=== PATIENT | female | born 1965 | race African-American/Black ===

== ENCOUNTER 2017-09-27 14:21 | Emergency (ER) | payer BC ==
[2017-09-27 14:47] VITALS: BP 170/99; PULSE 63; RESP 18; TEMP 98.3
--- NOTE | 2017-09-27 15:25 | ED ---
General Adult HPI - General Chief complaint: Dental/Oral Stated complaint: Dental Pain Source: patient Mode of arrival: ambulatory Limitations: no limitations - History of Present Illness Initial comments: Dictation was produced using [employer] dictation software. please excuse any grammatical, word or spelling errors. Chief Complaint: 51-year-old [place] female past medical history of hypertension presents with lymphadenopathy of the left cervical chain. History of Present Illness: Patient was seen at the local urgent care for lymphadenopathy of the left cervical chain. Patient states that she's had lymphadenopathy in the past after a dental procedure approximately 1 year ago. Patient has poor dentition with pending dental workup. Patient completed a ten- day course of doxycycline. Patient not complaining of any pain. She does state that she has to have further work on left maxillary teeth. Denies any constitutional symptoms. She was seen at urgent care where the urgent care doctor told her to come to the emergency department for blood work and CT soft tissue of the neck. Patient not having any shortness of breath, stridulous breathing, uncontrollable drooling. The ROS documented in this emergency department record has been reviewed and confirmed by me. Those systems with pertinent positive or negative responses have been documented in the HPI. All other systems are other negative and/or noncontributory. - Related Data Home Medications Medication Instructions Recorded Confirmed Biotin 5 mg PO DAILY 09/27/17 09/27/17 Nebivolol HCl [Bystolic] 20 mg PO DAILY 09/27/17 09/27/17 amLODIPine BESYLATE/BENAZEPRIL 1 cap PO HS 09/27/17 09/27/17 [Lotrel 10-20 mg Capsule] cloNIDine HCL [Catapres] 0.1 mg PO DAILY PRN 09/27/17 09/27/17 Previous Rx's Medication Instructions Recorded Clindamycin [Cleocin] 450 mg PO Q8H 7 Days #21 capsule 09/27/17 Allergies Allergy/AdvReac Type Severity Reaction Status Date / Time Sulfa (Sulfonamide Allergy Anaphylaxis Verified 09/27/17 15:18 Antibiotics) terbinafine [From Lamisil] Allergy Rash/Hives Verified 09/27/17 15:18 Review of Systems ROS Statement: Those systems with pertinent positive or pertinent negative responses have been documented in the HPI. ROS Other: All systems not noted in ROS Statement are negative. Past Medical History Past Medical History: Hypertension History of Any Multi-Drug Resistant Organisms: None Reported Past Surgical History: Ablation, Section, Hysterectomy, Orthopedic Surgery Additional Past Surgical History / Comment(s): partial hysterectomy and uterine ablasion Past Psychological History: No Psychological Hx Reported Smoking Status: Light tobacco smoker Past Alcohol Use History: Occasional Past Drug Use History: None Reported General Exam - General Exam Comments Initial Comments: PHYSICAL EXAM: General Impression: Alert and oriented x3, not in acute distress HEENT: Normocephalic atraumatic, extra-ocular movements intact, pupils equal and reactive to light bilaterally, mucous membranes moist, poor dentition, cracked tooth of the maxillary molars. No gingival abscesses. Small 1 x 1 cm lymphadenopathy of the left superior cervical chain. Mildly tender, no erythema Cardiovascular: Heart regular rate and rhythm, S1&S2 audible, no murmurs, rubs or gallops Chest: Lungs clear to auscultation bilaterally, no rhonchi, no wheeze, no rales Abdomen: Bowel sounds present, abdomen soft, non-tender, non-distended, no organomegaly Musculoskeletal: Pulses present and equal in all extremities, no peripheral edema Motor: Power 5/5 bilaterally, no focal deficits noted Neurological: CN II-XII grossly intact, no focal motor or sensory deficits noted Skin: Intact with no visualized rashes Psych: Normal affect and mood Limitations: no limitations Course Vital Signs 09/27/17 14:44 Temperature 98.3 F Pulse Rate 63 Respiratory 18 Rate Blood Pressure 170/99 O2 Sat by Pulse 98 Oximetry Medical Decision Making - Medical Decision Making ED course: 51-year-old -[place] female with past medical history of hypertension presents with lymphadenopathy of unknown etiology. Vital signs upon arrival are within acceptable limits. Patient was told by urgent care physician to come to the emergency department for blood work and CT imaging. No indication for blood work at this time given that patient has stable vital signs, she is afebrile and not complaining of a signs of severe infection. No indication for CT imaging at this time given that patient reports improvement symptoms since yesterday. Furthermore, patient not showing any signs of any airway compromise. Lymphadenopathy is very mild. Given that patient has poor dentition lymphadenopathies likely secondary to dental infection. Patient offered CT imaging and blood work she did not feel it was necessary. Patient states that she will contact her primary care physician tomorrow and she is also urged to move up her dental appointment with her dentist to take care of possible dental infection. Patient given by mouth antibiotics in the meantime until further notice by primary care physician or dentist. Disposition Clinical Impression: Dental caries Disposition: HOME SELF-CARE Instructions: Dental Caries (ED) Prescriptions: Clindamycin [Cleocin] 450 mg PO Q8H 7 Days #21 capsule Is patient prescribed a controlled substance at d/c from ED?: No Referrals: None,Stated [Primary Care Provider] - 1-2 days Time of Disposition: 15:28
== END 2017-09-27 15:44 | disposition home or self-care (01) ==
LOC: EC 14:21
DX: K02.9 Dental caries, unspecified (principal); K03.81 Cracked tooth; R59.0 Localized enlarged lymph nodes; I10 Essential (primary) hypertension; F17.200 Nicotine dependence, unspecified, uncomplicated; Z79.899 Other long term (current) drug therapy; Z88.1 Allergy status to other antibiotic agents; Z88.2 Allergy status to sulfonamides
CPT/HCPCS: 99282

== ENCOUNTER 2017-09-27 18:50 | Emergency (ER) | payer BC ==
[2017-09-27 18:57] VITALS: BP 149/90; PULSE 80; RESP 18; TEMP 98.6
--- NOTE | 2017-09-27 19:38 | ED ---
Allergic Reaction HPI - General Chief complaint: Allergic Reaction Stated complaint: Poss Allergic Reaction Time Seen by Provider: 09/27/17 19:22 Source: patient Mode of arrival: ambulatory Limitations: no limitations - History of Present Illness Initial Comments: This a 51-year-old female with past medical history who presents today for chief complaint of ALLERGIC reaction times an hour. Patient states that she was seen here the emergency department earlier for left-sided dental pain, or she was prescribed penicillin. She did not fill or take any of this medication yet. However she was at home eating shrimp which began to feel her lips and tongue swell. Patient felt as though she was having an ALLERGIC reaction to the shrimp. Patient immediately presents to emergency department. Upon arrival patient stated that her lips and tongue swelling had reduced. Vital signs stable. Patient denies any difficulty swallowing, difficulty breathing, shortness of breath, dizziness, syncope, chest pain. Patient denies any recent fever, chills, back pain, abdominal pain, nausea or vomiting, numbness or tingling, dysuria or hematuria, constipation or diarrhea, headaches or visual changes, or any other complaints. - Related Data Home Medications Medication Instructions Recorded Confirmed Biotin 5 mg PO DAILY 09/27/17 09/27/17 Nebivolol HCl [Bystolic] 20 mg PO DAILY 09/27/17 09/27/17 amLODIPine BESYLATE/BENAZEPRIL 1 cap PO DAILY 09/27/17 09/27/17 [Lotrel 10-20 mg Capsule] cloNIDine HCL [Catapres] 0.1 mg PO DAILY PRN 09/27/17 09/27/17 Previous Rx's Medication Instructions Recorded Clindamycin [Cleocin] 450 mg PO Q8H 7 Days #21 capsule 09/27/17 diphenhydrAMINE [Benadryl] 50 mg PO HS PRN 5 Days #5 capsule 09/27/17 predniSONE 20 mg PO DAILY 4 Days #4 tab 09/27/17 Allergies Allergy/AdvReac Type Severity Reaction Status Date / Time Sulfa (Sulfonamide Allergy Anaphylaxis Verified 09/27/17 19:12 Antibiotics) terbinafine [From Lamisil] Allergy Rash/Hives Verified 09/27/17 19:12 Review of Systems ROS Statement: Those systems with pertinent positive or pertinent negative responses have been documented in the HPI. ROS Other: All systems not noted in ROS Statement are negative. Constitutional: Denies: fever, chills Respiratory: Denies: dyspnea, wheezes, hemoptysis, stridor Cardiovascular: Denies: chest pain Endocrine: Denies: fatigue Gastrointestinal: Denies: abdominal pain, nausea, vomiting, diarrhea Genitourinary: Denies: urgency, dysuria, frequency Skin: Reports: as per HPI Past Medical History Past Medical History: Hypertension History of Any Multi-Drug Resistant Organisms: None Reported Past Surgical History: Ablation, Section, Hysterectomy, Orthopedic Surgery Additional Past Surgical History / Comment(s): partial hysterectomy and uterine ablasion Past Psychological History: No Psychological Hx Reported Smoking Status: Light tobacco smoker Past Alcohol Use History: Occasional Past Drug Use History: None Reported General Exam - General Exam Comments Initial Comments: General: The patient is awake and alert, in no distress, and does not appear acutely ill. Eye: Pupils are equal, round and reactive to light, extra-ocular movements are intact. No nystagmus. There is normal conjunctiva bilaterally. No signs of icterus. Ears, nose, mouth and throat: There are moist mucous membranes and no oral lesions. There is no swelling of the lips, buccal mucosa, tongue, oropharynx. Patient has no difficulty swallowing. Neck: The neck is supple, there is no tenderness or JVD. There is left-sided facial swelling, patient states that this hasn't changed since she presented earlier for dental pain. Cardiovascular: There is a regular rate and rhythm. No murmur, rub or gallop is appreciated. Respiratory: Lungs are clear to auscultation, respirations are non-labored, breath sounds are equal. No wheezes, stridor, rales, or rhonchi. Musculoskeletal: Normal ROM, no tenderness. Strength 5/5. Sensation intact. Pulses equal bilaterally 2+. Neurological: A&O x 3. CN II-XII intact, There are no obvious motor or sensory deficits. Coordination appears grossly intact. Speech is normal. Skin: Skin is warm and dry and no rashes or lesions are noted. Psychiatric: Cooperative, appropriate mood & affect, normal judgment. Limitations: no limitations Course Vital Signs 09/27/17 18:54 Temperature 98.6 F Pulse Rate 80 Respiratory 18 Rate Blood Pressure 149/90 O2 Sat by Pulse 99 Oximetry Medical Decision Making - Medical Decision Making When I first approached the patient, she was just oximeters about leaving because she stated her symptoms had already completely gone away. She no longer had any swelling of the tongue or lips. I advised the patient to stay for evaluation. I offered patient Benadryl, however she did not have a ride home and states that makes her drowsy. She requested a prescription for Benadryl to take home setting of taking it at the hospital. I advised patient to stay for at least an hour of observation, she denied. Case is discussed with Dr. Santacruz. The patient have any active symptoms of an ALLERGIC reaction, no difficulty breathing or swallowing or other signs of airway compromise. We feel the patient is stable for discharge with prescription for prednisone 20 mg 4 days as well as Benadryl 50 mg at night as needed for any signs of ALLERGIC reaction. Pt was advised to avoid all shellfish until further evaluation by piping supervisor. Pt was instructed to f/u with PCP in 1-2 days for reexamination and piping supervisor referral. Pt was happy with plan and discharged in stable condition. Disposition Clinical Impression: Allergic reaction to shellfish Disposition: HOME SELF-CARE Instructions: Food Allergy (ED) Additional Instructions: Please use medication as discussed. Please avoid shell-fill until further evaluation by piping supervisor. Please follow-up with family doctor in the next 2 days for piping supervisor referral . Please return to emergency room if the symptoms increase or worsen or for any other concerns. Prescriptions: diphenhydrAMINE [Benadryl] 50 mg PO HS PRN 5 Days #5 capsule PRN Reason: Allergic Reaction predniSONE 20 mg PO DAILY 4 Days #4 tab Is patient prescribed a controlled substance at d/c from ED?: No Referrals: Saul Wiggins MD [Primary Care Provider] - 1-2 days Time of Disposition: 19:38
== END 2017-09-27 19:41 | disposition home or self-care (01) ==
LOC: EC 18:50
DX: T78.1XXA Other adverse food reactions, not elsewhere classified, initial encounter (principal); R22.0 Localized swelling, mass and lump, head; K08.89 Other specified disorders of teeth and supporting structures; I10 Essential (primary) hypertension; F17.200 Nicotine dependence, unspecified, uncomplicated; Z79.899 Other long term (current) drug therapy; Z88.2 Allergy status to sulfonamides; Z88.8 Allergy status to other drugs, medicaments and biological substances; Z91.013 Allergy to seafood
CPT/HCPCS: 99284